=== PATIENT | male | born 1945 | race African-American/Black ===

== ENCOUNTER 2018-09-27 12:23 | Outpatient (CLI) | payer MEDICARE ==
[~2018-09-27] VITALS: Ht 193 cm; Wt 163.6 kg
--- NOTE | ~2018-09-27 | HEMODYNAMI ---
PATIENT:LILIANE MCNAMARA MEDICAL RECORD: [id number] : 49 LOCATION:D.CAT ADMISSION DATE: 09/27/18 Generatedon:09/27/201814:59 Patient name: LILIANE MCNAMARA Patient #: [id number] SSN: DO B: 1945 Date of study: 09/27/2018 Page: Of Hemodynamic Procedure Report Patient Data Patient Demographics Procedure consent was obtained First Name: LILIANE Gender: Male Last Name: ANDERS : 1945 Middle Initial: E Age: 73 year(s) Patient #: [id number] Race: Black Additional ID: [id number] Contact details Address: [address] [place] [address] State: [place] City: [place] Zip code: [address] Past Medical History Allergies: No known allergies Admission Admission Data Admission Date: 09/27/2018 Admission Time: 12:23 Lab Results Lab Result Date: 09/27/2018 Lab Result Time: 0:00 Biochemistry Name Units Result Min Max BUN mg/dl 10 --(-*--)-- 7 18 Creatinine mg/dl 1.1 --(--*-)-- 0.6 1.3 CBC Name Units Result Min Max Hemoglobin g/dl 12 *-(----)-- 13.5 17.5 Procedure Procedure Types Cath Procedure Diagnostic Procedure [facility] w/Coronaries Procedure Description Procedure Date Procedure Date: 09/27/2018 Procedure Start Time: 14:39 Procedure End Time: 14:55 Procedure Staff Name Function Guillermina Bourgeois RT Scrub Soni Duggan RN Nurse Manfred Daley MD Performing Physician Yayo Newton RT Monitor Charlee Martinez RT Monitor Procedure Data Cath Procedure Fluoroscopy Diagnostic fluoroscopy Total fluoroscopy Time: 2.5 time: 2.5 min min Diagnostic fluoroscopy Total fluoroscopy dose: 984 dose: 984 mGy mGy Contrast Material Contrast Material Type Amount (ml) Isovue 300 64 Entry Location Entry Primary Successful Side Size Upsize Upsize Entry Closure Succes sful Closure Location (Fr) 1 (Fr) 2 (Fr) Remarks Device Remarks Femoral Right 5 Fr vein Femoral Right 5 Fr Exoseal artery Estimated blood loss: 10 ml Diagnostic catheters Device Type Used For End Catheter Placement MULTIPACK JL 4.0 5Fr Procedure catheter MULTIPACK 3DRC 5Fr Procedure catheter MULTIPACK Pigtail 5 Fr Procedure catheter Procedure Complications No complications Procedure Medications Medication Administration Route Dosage Oxygen etCO2 Nasal cannula 2 l/min Lidocaine 2% added to field 20 Heparin Flush Bag added to field 2 bags (1000units/500ml NS) 0.9% NaCl I.V. 100 ml/hr Versed I.V. 1 mg Fentanyl I.V. 50 mcg Versed I.V. 1 mg Fentanyl I.V. 50 mcg Hemodynamics Rest HGB: 12 (g/dl) Heart Rate: 30 (bpm) Pressure Samples Time Site Value (mmHg) Purpose Heart Use Rate(bpm) 14:51 LV 152/4,15 Snapshot 98 14:51 LV 152/2,11 EDP 55 Gradients Valve Time Site Site Mean SEP/DFP Peak To Heart Use 1 2 (mmHg) (sec/min) Peak Rate (mmHg) (bpm) Aortic 14:52 LV AO 65 Snapshots Pre Cath Intra NCS Post Cath Vital Signs Time Heart Resp SPO2 etCO2 NIBP (mmHg) Rhythm Pain Sedation Rate (ipm) (%) (mmHg) Status Level (bpm) 14:24:09 73 23 98 0 186/100(152) NSR 0 (11) 10(A) , No pain 14:28:37 155 16 98 0 195/108(150) NSR 0 (11) 10(A) , No pain 14:32:57 67 11 98 34.3 181/93(152) NSR 0 (11) 10(A) , No pain 14:37:28 69 17 100 12.6 181/101(153) NSR 0 (11) 10(A) , No pain 14:41:50 66 14 99 0 180/94(146) NSR 0 (11) 9(A) , No pain 14:46:10 70 16 100 0 169/92(137) NSR 0 (11) 9(A) , No pain 14:50:38 64 14 99 0 167/82(139) NSR 0 (11) 9(A) , No pain 14:54:58 77 18 100 23.1 166/88(142) NSR 0 (11) 10(A) , No pain Medications Time Medication Route Dose Verified Delivered Reason Notes Eff ectiveness by by 14:28:39 Oxygen etCO2 2 Manfred Buffie used for Nasal l/min Edi Duggan RN procedure cannula 14:28:48 Lidocaine 2% added 20ml Manfred Manfred for local to vial Edi Daley MD anesthetic field 14:28:56 Heparin Flush added 2 Manfred Manfred used for Bag to bags Edi Daley MD procedure (1000units/500ml field NS) 14:29:06 0.9% NaCl I.V. 100 Manfred Buffie Per ml/hr Edi Duggan RN physician 14:35:51 Versed I.V. 1 mg Manfred Buffie for Edi Duggan RN sedation 14:35:56 Fentanyl I.V. 50 Manfred Buffie for mcg Edi Duggan RN sedation 14:41:51 Versed I.V. 1 mg Manfred Buffie for Edi Duggan RN sedation 14:41:55 Fentanyl I.V. 50 Manfred Buffie for mcg Edi Duggan RN sedation Procedure Log Time Note 14:19:38 Guillermina Bourgeois RT(R) sent for patient. Start room use. 14:19:39 Time tracking: Regular hours (M-F 7:00 - 5:00) 14:19:44 Plan of Care:Hemodynamics will remain stable., Cardiac rhythm will remain stable., Comfort level will be maintained., Respiratory function will remain adequate., Patient/ family verbilizes understanding of procedure., Procedure tolerated without complication., Recovers from procedure without complications.. 14:19:48 Patient received from Pre/Post Procedure Room to [facility] 2 Alert and oriented. Tansferred to table in Supine position. 14:19:49 Warm blankets applied, and gale hugger turned on for patient comfort. 14:19:50 Correct patient and procedure confirmed by team. 14:19:51 Signed procedure consent form obtained from patient. 14:19:52 ECG and BP/O2 sat monitors applied to patient. 14:22:55 Vital chart was started 14:22:58 Baseline sample Acquired. 14:23:00 Baseline sample Acquired. 14:23:02 Baseline sample Acquired. 14:23:09 Baseline sample Acquired. 14:23:11 Baseline sample Acquired. 14:23:21 Baseline sample Acquired. 14:23:27 Rhythm: sinus rhythm 14:23:29 Full Disclosure recording started 14:24:23 H&P Date Dictated: 09/27/2018 Within 30 days and on chart.. 14:24:33 Family in waiting room. 14:24:35 Patient NPO since Midnight. 14:24:45 Patient allergic to No known allergies 14:24:48 Is the patient allergic to Iodine/contrast media? No. 14:24:51 Was the patient premedicated? Yes 14:24:52 Is patient on blood thinner?No 14:24:55 Patient diabetic? Yes. 14:24:56 If diabetic: On Metformin? Yes 14:25:00 If on Metformin: Last Dose? 09/26/2018 14:25:05 Snore? Yes 14:25:07 Sleep apnea? No 14:25:14 Patient pain scale 0/10 ?. 14:25:22 IV patent on arrival in left forearm with 0.9% NaCl at [facility]. 14:27:41 Lab Result : Hemoglobin 12 g/dl 14::41 Lab Result : Creatinine 1.1 mg/dl 14::41 Lab Result : BUN 10 mg/dl 14:27:45 Lab results completed and on chart. 14:27:50 Right groin area was prepped with chlora-prep and draped in sterile fashion 14:27:51 Sharps counted by scrub and verified by R.N. 14:27:51 Alarms reviewed by R. N. 14:27:53 Physician arrived 14:28:39 Oxygen 2 l/min etCO2 Nasal cannula was administered by Soni Duggan RN; used for procedure; 14::48 Lidocaine 2% 20ml vial added to field was administered by Manfred Daley MD; for local anesthetic; 14:28:56 Heparin Flush Bag (1000units/500ml NS) 2 bags added to field was administered by Manfred Daley MD; used for procedure; 14:29:06 0.9% NaCl 100 ml/hr I.V. was administered by Soni Duggan RN; Per physician; 14:30:11 Final Timeout: patient, procedure, and site verified with staff and physician. All members of the team are in agreement. 14:30:11 --------ALL STOP TIME OUT------ 14:30:22 Right groin site verified by team. 14:30:27 Maximum allowable Isovue 300 dose 300ml. Physician notified. (300ml for normal creatinines. For patients with creatinine of 1.7 or higher multiply weight(kg) x 5 divided by creatinine.) 14:30:32 Fire Safety Assessment: A--An alcohol-based skin anteseptic being used preoperatively., C--Open oxygen or nitrous oxide is being used., D--An ESU, laser, or fiber-optic light is being used. 14:30:38 Physical assessment completed. ASA score P 2 - A patient with mild systemic disease as per Manfred Daley MD. 14:30:41 Sedation plan: IV Moderate Sedation Medication:Versed, Fentanyl 14:30:47 Use device set Femoral Dx 14:30:48 ACIST Syringe (80593) opened to sterile field. 14:30:49 DIAGNOSTIC WIRE .035 260cm J wire (332681) opened to sterile field. 14:30:49 Medline Cath Pack ([id number]) opened to sterile field. 14:30:49 Bag Decanter (2002S) opened to sterile field. 14:30:51 ACIST Manifold (02753) opened to sterile field. 14:30:51 ACIST Hand Control (33015) opened to sterile field. 14:30:53 DIAGNOSTIC Multipack 5Fr catheter set ([id number]) opened to sterile field. 14:30:56 SHEATH 5FR [place] ([id number]) opened to sterile field. 14:30:58 Tegaderm 4 x 4 (1626W) opened to sterile field. 14:34:52 Zero performed for pressure channel P1 14:35:23 Zero performed for pressure channel P1 14:35:51 Versed 1 mg I.V. was administered by Soni Duggan RN; for sedation; 14:35:56 Fentanyl 50 mcg I.V. was administered by Soni Duggan RN; for sedation; 14:39:20 Procedure started. 14:39:31 Local anesthetic to right femoral artery with Lidocaine 2% by Manfred Daley MD.INITIAL ACCESS ONLY 14:41:51 Versed 1 mg I.V. was administered by Soni Duggan RN; for sedation; 14:41:55 Fentanyl 50 mcg I.V. was administered by Soni Duggan RN; for sedation; 14:43:54 A 5 Fr sheath was inserted into the Right Femoral vein 14:45:00 A 5 Fr sheath was inserted into the Right Femoral artery 14:46:27 A MULTIPACK JL 4.0 5Fr catheter was advanced over the wire and used for Procedure. 14:48:19 LCA angiography performed. 14:48:57 Catheter removed. 14:49:07 A MULTIPACK 3DRC 5Fr catheter was advanced over the wire and used for Procedure. 14:49:11 RCA angiography performed. 14:50:17 Catheter removed. 14:50:26 A MULTIPACK Pigtail 5 Fr catheter was advanced over the wire and used for Procedure. 14:51:19 LV angiography performed. 14:52:10 EF : 45 % 14:52:30 Catheter removed. 14:52:35 EXOSEAL 5Fr (EX500) opened to sterile field. 14:52:58 Sheath removed intact; hemostasis achieved with Exoseal to the Right Femoral artery. 14:53:36 Procedure ended.(Physican Out) 14:53:52 Fluoroscopy time 02.50 minutes. 14:53:56 Fluoroscopy dose: 984 mGy 14:53:56 Flurop Dose total: 984 14:54:05 Contrast amount:Isovue 300 64ml. 14:54:07 Insertion/operative site no bleeding no hematoma. 14:54:12 Post-op/insertion site Right Femoral artery dressed using a 4 x 4 and Tegaderm. 14:54:15 Post Procedure Pulses reassessed and unchanged 14:54:22 Post-procedure physical assessment completed. ASA score P 2 - A patient with mild systemic disease as per Manfred Daley MD. 14:54:25 Post procedure rhythm: unchanged. 14:54:32 Estimated blood loss: 10 ml 14:54:35 Post procedure instruction explained to patient.Patient verbalizes understanding. 14:54:41 Procedure and supply charges have been captured, reviewed, submitted and are correct. 14:55:08 Procedure Complication : No complications 14:55:22 Vital chart was stopped 14:55:29 See physician's report for complete and final results. 14:55:36 Report given to Pre/Post Procedure Room. 14:55:40 Patient transfered to Pre/Post Procedure Room with Stretcher. 14:55:45 Full Disclosure recording stopped 14:55:45 Procedure ended. 14:55:50 End room use (Document Last) Device Usage Item Name Manufacture Quantity Catalog Hospital Part Current Minimal L ot# / Number Charge Number Stock Stock Serial# Code ACIST Acist 1 09753 120204 492934 778518 20 Syringe Medical (90912) Systems Inc Bag Microtek 1 2001S 300314 39554 031877 5 Decanter Medical Inc. () Medline Medline 1 [id number] 941374 53833 504755 5 Cath Pack ([id number]) DIAGNOSTIC St Farshad 1 891648 158298 870306 327559 30 WIRE .035 260cm J wire (473172) ACIST Hand Acist 1 71389 732388 832769 579468 5 Control Medical (20011) Systems Inc ACIST Acist 1 51881 427853 730224 150048 5 Manifold Medical (26343) Systems Inc DIAGNOSTIC Cardinal 1 QJ7970 407759 46900 572566 30 Multipack Health 5Fr catheter set (SS2704) SHEATH 5FR Terumo 1 [id number] 109873 312583 983482 5 [place] (BUL839) Tegaderm 4 3M 1 1626W 031411 040137 561883 5 x 4 (1626W) MULTIPACK Cardinal 1 820317 5 JL 4.0 5Fr Health catheter MULTIPACK Cardinal 1 662259 5 3DRC 5Fr Health catheter MULTIPACK Cardinal 1 736342 5 Pigtail 5 Health Fr catheter EXOSEAL 5Fr Cardinal 1 EX500 551016 379059 813042 10 (EX500) Health Signature Audit [place] Stage Time Signature Unsigned Intra-Procedure 09/27/2018 Charlee Martinez 2:59:06 PM RT(R) Signatures Monitor : Yayo Newton RT Signature : Date : Time : Monitor : Charlee Martinez Signature : RT Date : Time : [facility] [address] [place] [address]
[2018-09-27] MEDS ORDERED: FLOMAX0.4 MG PO (12:46)
[2018-09-27] MEDS ORDERED: LISINOPRIL40 MG PO (12:47)
[2018-09-27] MEDS ORDERED: ZOCOR40 MG PO (12:47)
[2018-09-27] MEDS ORDERED: FUROSEMIDE20 MG PO (12:47)
[2018-09-27] MEDS ORDERED: GLUCOPHAGE1000 MG PO (12:47)
[2018-09-27] MEDS ORDERED: TOPROL XL50 MG PO (12:48)
[2018-09-27] MEDS ORDERED: KLOR-CON 1010 MEQ PO (12:48)
[2018-09-27] MEDS ORDERED: BAYER CHEWABLE81 MG PO (12:50)
[2018-09-27] MEDS ORDERED: ACETAMINOPHEN325 MG PO (12:54)
[2018-09-27 12:55] VITALS: BP 189/89; Ht 193 cm; Wt 163.6 kg
[2018-09-27 13:14] LABS: BASOPHILS 0.5 % (0-2); EOSINOPHILS 1.1 % (0-7); HEMATOCRIT 36.6 % (42.0-54.0); IMMATURE GRANULOCYTES 0.2 % (0-5); LYMPHOCYTES 21.5 % (15-50); MCH 31.7 pg (26.0-34.0); MCHC 32.8 g/dL (31.0-37.0); MCV 96.6 fL (80.0-100.0); MEAN PLATELET VOLUME 10.6 fL (7.4-10.4); MONOCYTES 8.7 % (2-11); PLATELET COUNT 258 10x3/uL (130-400); RBC 3.79 10x6/uL (4.20-6.10); RDW 12.3 % (11.5-14.5); WBC 6.2 10x3/uL (4.8-10.8)
[2018-09-27 13:22] LABS: ANION GAP 12.3 mmol/L (8-16); CALCIUM 9.4 mg/dL (8.5-10.1); CARBON DIOXIDE 29.6 mmol/L (21.0-32.0); CREATININE - SERUM 1.1 mg/dL (0.6-1.3)
[2018-09-27 13:23] LABS: POTASSIUM - SERUM 4.9 mmol/L (3.5-5.1)
--- NOTE | 2018-09-27 15:10 | NUR ---
PT ARRIVED BY STRETCHER. PLACED ON MONITORS. RIGHT GROIN DRESSING C/D/I. NO S/S OF HEMATOMA NOTED. FAMILY AT BEDSIDE.
--- NOTE | 2018-09-27 15:25 | NUR ---
RIGHT GROIN DRESSING C/D/I. NO S/S OF HEMATOMA NOTED. VSS. FAMILY AT BEDSIDE. PT TOLERATING A SANDWICH AND DRINK. DENIES NAUSEA AT THIS TIME.
--- NOTE | 2018-09-27 15:59 | NUR ---
RIGHT GROIN DRESSING C/D/I. NO S/S OF HEMATOMA NOTED. VSS. PT'S HEAD OF BED INC TO 30 DEGREES. TOLERATED WELL. NO NEEDS AT THIS TIME.
--- NOTE | 2018-09-27 16:17 | NUR ---
DR. VARGAS ROUNDED AND SPOKE WITH PT AND PT'S FAMILY. BP 181/85. ORDERS FOR DOSE OF LISINOPRIL PRIOR TO DISCHARGE HOME.
--- NOTE | 2018-09-27 16:37 | NUR ---
LEFT HAND PIV D/C'D WITH CATH TIP INTACT. PT TOLERATED WELL. RIGHT GROIN DRESSING C/D/I. NO S/S OF HEMATOMA NOTED. DISCUSSED DISCHARGE INSTRUCTIONS WITH PT AND PT'S FAMILY. THEY VOICED UNDERSTANDING. PT INSTRUCTED TO GET DRESSED.
--- NOTE | 2018-09-27 16:44 | NUR ---
PT TO RESTROOM. VOIDED WITHOUT DIFFICULTY. PT TAKEN TO VEHICLE BY WHEELCHAIR. NO S/S OF DISTRESS NOTED. ALL BELONGINGS IN HAND.
== END 2018-09-27 14:45 | disposition home or self-care (01) ==
LOC: D.CATH 12:23
PROVIDERS: ATTEND Internal Medicine Cardiovascular Disease
DX: I50.9 Heart failure, unspecified (principal); R94.30 Abnormal result of cardiovascular function study, unspecified